=== PATIENT | female | born 1985 ===

== ENCOUNTER 2016-06-25 13:21 | Emergency (ER) | payer OTHER ==
[2016-06-25 14:15] VITALS: BP 139/84; PULSE 94; RESP 18; TEMP 98.4; O2SAT 100
--- NOTE | 2016-06-25 14:35 | ED PDOC ---
HPI: Female Pain Time Seen by Provider: 06/25/16 14:22 Chief Complaint (Nursing): Female Genitourinary Chief Complaint (Provider): Amenorrhea History Per: Patient Additional Complaint(s): Patient is a 30 yo female, no PMH, presents to ED requesting test. LMP was May 17. Pt notes feeling dizziness for 10 days. Nausea, no v/d. NO bleeding or cramping. Past Medical History Reviewed: Nursing Documentation, Vital Signs Vital Signs: Last Vital Signs Temp 98.4 F 06/25/16 14:12 Pulse 94 H 06/25/16 14:12 Resp 18 06/25/16 14:12 BP 139/84 06/25/16 14:12 Pulse Ox 100 06/25/16 14:12 - Medical History PMH: No Chronic Diseases - Surgical History Surgical History: No Surg Hx - Family History Family History: States: No Known Family Hx - Living Arrangements Living Arrangements: With Family - Social History Current smoker - smoking cessation education provided: No Alcohol: None Drugs: Denies - Allergies Allergies/Adverse Reactions: Allergies Allergy/AdvReac Type Severity Reaction Status Date / Time No Known Allergies Allergy Verified 06/25/16 14:11 Review of Systems ROS Statement: Except As Marked, All Systems Reviewed And Found Negative Physical Exam - Reviewed Nursing Documentation Reviewed: Yes Vital Signs Reviewed: Yes - Physical Exam Appears: Positive for: Well, Non-toxic, No Acute Distress Head Exam: Positive for: ATRAUMATIC, NORMAL INSPECTION, NORMOCEPHALIC Skin: Positive for: Normal Color, Warm, DRY Eye Exam: Positive for: EOMI, Normal appearance, PERRL ENT: Positive for: Normal ENT Inspection Neck: Positive for: Normal, Painless ROM Cardiovascular/Chest: Positive for: Regular Rate, Rhythm Respiratory: Positive for: CNT, Normal Breath Sounds Gastrointestinal/Abdominal: Positive for: Normal Exam, Bowel Sounds, Soft Back: Positive for: Normal Inspection Extremity: Positive for: Normal ROM Neurologic/Psych: Positive for: Alert, Oriented - ECG O2 Sat by Pulse Oximetry: 100 Medical Decision Making Medical Decision Making: preg (+) Pt educated on result and demonstrated full understanding. Pt requesting US and indications for such discussed at length Advised to follow up with OB, continue pre-natals and return to ED with any concerns. Disposition - Clinical Impression Clinical Impression: - Patient ED Disposition Is Patient to be Admitted: No - Disposition [facility]] [facility] [Outside] Disposition: Routine/Home Disposition Time: 15:41 Condition: STABLE Instructions: (ED) Print Language: FRISIAN
[2016-06-25] MEDS ORDERED: Povidone Iodine Topical 10% Sol ONE (15:20)
== END 2016-06-25 15:39 | disposition home or self-care (01) ==
LOC: H.ER 13:21
DX: R42 Dizziness and giddiness (principal); Z33.1 Pregnant state, incidental

== ENCOUNTER 2016-10-23 11:30 | Emergency (ER) | payer SELFPAY ==
[2016-10-23 12:54] VITALS: BMI 3439.8
--- NOTE | 2016-10-23 13:02 | OBHP ---
Datetime: 10/23/2016 12:40 IP Adm Impression: , intrauterine ; No Active Labor IP Admit Plan: Discharge home Admit Comment, IP Provider: yo IUP at 22+w from [facility] c/o back pain since yesterday. No SORM. no VB +FM, She did not used meds for pain. No fever/chills. IN NAD comforable/no CVA tenderness; + muscular skeletal pain. PMH: denies PSH: ambika NKA PsoH ambika smoking EOTH druikelly A: IUP at 22w back pain - prb musc skeletal PLAN: dischage home and follow up as schedule [facility] in 1mo Acetamenophen 650mg po q 4h prn pain OCT Translating phone used Kenji Drake [phone] Pelvic Type - PN: Adequate Extremities - PN: Normal Abdomen - PN: Normal Back - PN: Normal Breast - PN: Not Done Lungs - PN: Normal Heart - PN: Normal Thyroid - PN: Normal Neurologic - PN: Normal HEENT - PN: Normal General - PN: Normal FHR - Baseline A Provider: + Membranes, Provider: Intact Comments, ACOG Physical Exam: ROS: General: no weakness; no fatigue HEENT: no HOWARD; no visual dist CV: no palpitations; no no CP GI: no N/V no diarhea No epigastric pain; non radiating : no F/U/D MS: No joint pain Pool Provider: Negative IP Hx Assessment: The History has been Reviewed and is Current Dilatation, Provider: 0 Genitourinary Exam: Normal DTRs - PN: Normal
[2016-10-23 20:47] VITALS: BP 125/81; PULSE 92; RESP 18; TEMP 98.8; O2SAT 100
== END 2016-10-23 13:00 | disposition home or self-care (01) ==
LOC: H.EROB2 11:30 → H.L&D 11:58 → H.EROB2 13:00
DX: O47.03 False labor before 37 completed weeks of gestation, third trimester (principal); Z3A.22 22 weeks gestation of pregnancy

== ENCOUNTER 2017-02-15 03:28 | Inpatient (IN) | payer MEDICAID ==
[2017-02-15] MEDS ORDERED: Phenaphthazine-PH Test Paper VI ONE (04:13)
[2017-02-15 04:14] VITALS: BMI 35.3
[2017-02-15] MEDS ORDERED: Lactated Ringer's 1,000 ML IV SCH ×2 (04:45→11:15)
[2017-02-15 05:23] VITALS: O2SAT 100
[2017-02-15 05:41] LABS: BASO % 0.2 % (0.0-2.0); EOS # 0.1 K/uL (0.0-0.7); EOS % 0.9 % (0.0-4.0); HEMATOCRIT 34.5 % (34.0-47.0); LYMPH # 1.7 K/uL (1.0-4.3); LYMPH % 15.4 % (20.0-40.0); MEAN CELL VOLUME 79.1 fl (81.0-99.0); MEAN CORPUSCULAR HEMOGLOBIN 26.4 pg (27.0-31.0); MEAN CORPUSCULAR HGB CONC 33.4 g/dL (33.0-37.0); MEAN PLATELET VOLUME 9.5 fl (7.2-11.7); MONO # 0.7 K/uL (0.0-0.8); MONO % 6.5 % (0.0-10.0); NEUT # 8.2 K/uL (1.8-7.0); RED CELL DISTRIBUTION WIDTH 14.1 % (11.5-14.5); WHITE BLOOD COUNT 10.7 K/uL (4.8-10.8)
--- NOTE | 2017-02-15 08:10 | OBADHP ---
Datetime: 02/15/2017 04:19 Admit Comment, IP Provider: 31 yo at 39 1/7 weeks GA based on LMP 05/17/16, consistent with first trimester US, EDC 02/21/17 presents with c/o SROM at 2:30 am this morning. Denies VB, or CTX. Report s +FM. Pt is GBS negative. Pt goes to [facility] and chart is reviewed. Denies nausea, vomiting, ab dominal pain, fever, chills, headache, dizziness, chest pain or dyspnea. PNC: [facility], Dr. Richardson PNL: GBS neg, HIV neg, RPR neg, HBsAg neg, rubella equivocal, gc/c neg, pap neg. past obhx: denies Past rn gynecology hx: denies hx STI. Pap negative. Right ovarian cyst. Anterior myoma. Pmhx: Positive depression screen pshx: denies social hx: denies EtOH, smoking cigarettes or recreational drug use. medications: PNV allergies: NKDA Assessment: 31 yo IUP @ 39 1/7 weeks GA has SROM. Plan: Admit to L_D Continuous heart tracing CBC Type and screen Case d/w on-call OB hospitalist Dr. Mercedez Rose, PGY1 Addendum: I saw on exam patient presentation. Patient grossly ruptured on exam. A 1 cm irregular contraction s. Plan to admit for management. Maternal well-being and well-being reassuring at this time. Timothy pascual questions answered. Mercedez Extremities - PN: Normal Abdomen - PN: Normal Back - PN: Normal Lungs - PN: Normal Heart - PN: Normal Neurologic - PN: Normal HEENT - PN: Normal General - PN: Normal FHR - Baseline A Provider: 130s Amniotic Fluid Color, Provider: Clear Membranes, Provider: Ruptured Comments, ACOG Physical Exam: SVE: clear gushing of fluids on speculum indicative of SROM. Pool Provider: Positive IP Hx Assessment: The History has been Reviewed and is Current Vital Signs Provider: Reviewed IP Chief Complaint: Suspected ruptured membranes NICHD Variability Prov Fetus A: Moderate 6-25bpm NICHD Accel Fetus A IP Provider: 15X15 FHR Category Provider Fetus A: Category I DTRs - PN: Normal EGA AdmitDate IP: 39.1 IP Adm Impression: Term, intrauterine IP Admit Plan: Admit to unit; Initiate labor protocol Datetime: 10/23/2016 12:40 Pelvic Type - PN: Adequate Breast - PN: Not Done Thyroid - PN: Normal Dilatation, Provider: 0 Genitourinary Exam: Normal
[2017-02-15] MEDS ORDERED: Oxytocin 30 UNITS in Sodium Chloride 0.9% 500 ML IV ONE ×2 (09:51→19:24)
[2017-02-15] MEDS: Lactated Ringer's 1,000 ML IV SCH ×2 (15:35→16:00)
[2017-02-15] MEDS ORDERED: Fentanyl/Bupivacaine HCl 250 ML EPI ONE (15:41)
[2017-02-15] MEDS ORDERED: Bupivacaine HCl 0.25% PF (10 ml) Inj ONE (15:41)
[2017-02-15] MEDS ORDERED: Oxycodone/Acetaminophen 5/325 mg Tab PO PRN ×2 (22:12)
[2017-02-15] MEDS ORDERED: Benzocaine/Menthol SPRAY TOP PRN (22:12)
[2017-02-16 07:26] LABS: HEMATOCRIT 28.6 % (34.0-47.0); MEAN CELL VOLUME 79.6 fl (81.0-99.0); MEAN CORPUSCULAR HEMOGLOBIN 25.8 pg (27.0-31.0); MEAN CORPUSCULAR HGB CONC 32.4 g/dL (33.0-37.0); RED CELL DISTRIBUTION WIDTH 14.5 % (11.5-14.5); WHITE BLOOD COUNT 12.5 K/uL (4.8-10.8)
[2017-02-16] MEDS ORDERED: Multivitamin With Minerals Tab PO SCH (09:00)
[2017-02-16] MEDS ORDERED: Measles, Mumps, and Rubella 0.5 ML VIAL SC ONE (14:33)
[2017-02-17] MEDS ORDERED: Measles, Mumps, and Rubella 0.5 ML VIAL SC ONE (16:27)
--- NOTE | 2017-02-17 18:54 | OBPPN ---
Datetime: 02/16/2017 19:01 PP Pain Prov: Within normal limits PP Nausea Prov: Denies PP Flatus Prov: Yes PP BM Prov: Yes PP Heart Prov: Normal PP Lungs Prov: Normal PP Abdomen/Uterus Prov: Normal PP Lochia Prov: Normal PP Vulva/Perineum Prov: Normal PP Extremities Prov: Normal PP Impression Prov: Normal progression PP Plan Prov: Continue present management PP Progress Note Prov: 31 y/o F PPD#0 reports feeling well with NO acute complaints. Nurse reported elevated HR 119 at 4 pm today. Lochia is reducing progressively. Pt denies headache, CP, SOB, active bleeding or dizziness. On PNC records, there 2 measurement of HR: on 01/24 it was 98; on 02/07 it was 99. Today (02/16), H/H was 9.3/28.6. Pt is on PO Iron therapy. A/P: 31 y/o F on PPD#0 with tachycardia. - Will continue to observe pt for signs of decompensation, infection or sepsis. Case discussed with Dr Bradley, OB division plant engineer Arabella PGY-1. Agree with The above IP PP Procedures: None Vital Signs Provider PP: Reviewed Datetime: 02/16/2017 08:38 PP Breasts Prov: Normal PP CVA Tenderness Prov: Not Done
--- NOTE | 2017-02-17 18:56 | OBPPN ---
Datetime: 02/16/2017 19:26 PP Progress Note Prov: Nurse alerted me that Pt has history of intrapartum depression. Visited with patient and evaluated for severity. She states that she did have symptoms but mainly due to life stre ssors. She is currently feeling well, happy for her new baby. Denies suicidal ideation, self harm, or harm to others. She denies being treated by medication and is going to therapy on a case by case bas is. Last therapy session was 2 weeks ago. I encouraged her to make an appointment this week after dis charge to be able to benefit from a session. Her concern was not having romulo care. I encouraged he r to apply and to be able to see us for her primary care, ob, psychiatric and pediatrics. She agrees and will apply to follow up with us. Ned Boston MD Family Medicine PGY1 Agree with above.
--- NOTE | 2017-02-17 18:58 | OBDCSUM ---
Datetime: 02/17/2017 09:34 Discharged to, Provider: Home Follow up at, Provider: Dr. Richardson Disch Instr Activity: Normal activity; May be up to bathroom; May be up for meals; May Shower Disch Instr Diet: Regular Discharge Instructions, Provider: Routine instructions given Discharge Diagnosis, Provider: Term Delivered Discharge Time: 02/17/2017 18:30 Follow up in weeks, Provider: 6 weeks Disch Referrals: None Contraception discussed, Prov: Yes Disch Activity Restrictions: Minimize stair-climbing; Nothing in vagina - [place], tampons, douc he Discharge Comment, Provider: DOA: 02/15/17 EGA: 39.1 weeks Diagnosis: uncomplicated with NVD PRisk factors: none summary of : L_D summary: DOL: 02/15/17 at 21:25, NB: male : 9/9 Weight: 3455g PP summary: No serious complications during PP. Lochia= menses, mild pain, controlled with medications. Rubella equivocal blood type: O+ CBC pp: 9.3/28.6 Discharge Date 02/17/17 at 10:00AM Discharge Instructions: -encourage -Ibuprofen for pain PRN -Ambulate -continue PNV 1 tab/day -f/u NB visit and PP visit Morley PGY 1 Agree with above. Contraception after Delivery: Undecided
[2017-02-17 22:41] VITALS: BP 118/70; PULSE 92; RESP 16; TEMP 97.2
== END 2017-02-17 18:30 | disposition home or self-care (01) | DRG 373 ==
LOC: H.EROB2 03:28 → H.L&D 04:45 → H.OB/GYN 02-16 00:30
PROVIDERS: ADMIT Obstetrics & Gynecology; ATTEND Obstetrics & Gynecology
PROC: 10E0XZZ Delivery of Products of Conception, External Approach (ICD-10-PCS; principal; 2017-02-15)
PROC: 4A1HXCZ Monitoring of Products of Conception, Cardiac Rate, External Approach (ICD-10-PCS; 2017-02-15)
DX: O80 Encounter for full-term uncomplicated delivery (principal); Z37.0 Single live birth; Z3A.39 39 weeks gestation of pregnancy

== ENCOUNTER 2017-08-26 17:47 | Emergency (ER) | payer SELFPAY ==
[2017-08-26 17:47] VITALS: BMI 35.3
[2017-08-26 18:17] VITALS: BP 126/76; PULSE 88; RESP 16; TEMP 97.9; O2SAT 100
--- NOTE | 2017-08-26 22:42 | ED PDOC ---
HPI: Abdomen Time Seen by Provider: 08/26/17 22:21 Chief Complaint (Nursing): Abdominal Pain Chief Complaint (Provider): abdominal pain History Per: Patient History/Exam Limitations: no limitations Onset/Duration Of Symptoms: Days (2) Current Symptoms Are (Timing): Still Present Location Of Pain/Discomfort: Suprapubic Quality Of Discomfort: Cramping Additional Complaint(s): 31 y/o female presents for evaluation of intermittent lower abdominal cramping x 2 days. Associated nausea/vomiting. Patient reports her menstrual period is late. Denies fever, cough, congestion, chest pain, shortness of breath, palpitations, changes in bowel movements, urinary symptoms, vaginal bleeding/ discharge. Past Medical History Reviewed: Historical Data, Nursing Documentation, Vital Signs Vital Signs: Last Vital Signs Temp 97.9 F 08/27/17 02:11 Pulse 88 08/27/17 02:11 Resp 16 08/27/17 02:11 BP 126/76 08/27/17 02:11 Pulse Ox 100 08/27/17 04:09 - Medical History PMH: No Chronic Diseases Denies: Depression, Diabetes, HTN - Surgical History Surgical History: No Surg Hx - Family History Family History: States: No Known Family Hx - Living Arrangements Living Arrangements: With Family - Home Medications Home Medications: Ambulatory Orders Medication Instructions Recorded Pnv with Ca,No.72/Iron/FA [Pnv 1 tab PO DAILY 10/23/16 Plus Multivit Tab] Ibuprofen [Motrin Tab] 600 mg PO Q6 PRN #30 tab 02/17/17 - Allergies Allergies/Adverse Reactions: Allergies Allergy/AdvReac Type Severity Reaction Status Date / Time No Known Allergies Allergy Verified 08/26/17 18:14 Review of Systems ROS Statement: Except As Marked, All Systems Reviewed And Found Negative Gastrointestinal: Positive for: Nausea, Vomiting, Abdominal Pain Physical Exam - Reviewed Nursing Documentation Reviewed: Yes Vital Signs Reviewed: Yes - Physical Exam Appears: Positive for: Well, Non-toxic, No Acute Distress Head Exam: Positive for: ATRAUMATIC, NORMAL INSPECTION, NORMOCEPHALIC Skin: Positive for: Normal Color Eye Exam: Positive for: Normal appearance ENT: Positive for: Normal ENT Inspection Cardiovascular/Chest: Positive for: Regular Rate, Rhythm Respiratory: Positive for: Normal Breath Sounds Gastrointestinal/Abdominal: Positive for: Bowel Sounds, Soft, Tenderness ( suprapubic, llq) Back: Positive for: Normal Inspection Extremity: Positive for: Normal ROM Neurologic/Psych: Positive for: Alert, Oriented - Laboratory Results Result Diagrams: 08/26/17 23:50 08/26/17 23:50 - ECG O2 Sat by Pulse Oximetry: 100 - CT Scan/US tv u/s Other Rad Studies (CT/US): Read By Radiologist, Radiology Report Reviewed - Progress ED Course And Treament: labs, urine, u/s EXAM: US , Transvaginal CLINICAL HISTORY: 31 years old, female; Pain; Other: Pelvis pain/llq; Gestational age or lmp: ; ; Additional info: Suprapubic, llq pain TECHNIQUE: Real-time transvaginal obstetrical ultrasound of the maternal pelvis and a first trimester with image documentation. Transvaginal imaging was used for better evaluation of the fetus and adnexa. COMPARISON: No relevant prior studies available. FINDINGS: Gestation: Living intrauterine gestation size/ dates compatible at 5 weeks 5 days. CORBY is 04/23/18 Positive embryonic heart tones at 96 beats prominent Gestational sac is located in the uterine fundus. Normal secondary yolk sac. No significant subchorionic bleed. Placenta/amniotic fluid: See above. Uterus/cervix: Cervix is closed. No myometrial mass. Ovaries: The left maternal ovary measures 3.2 x 2.4 x 3 cm and contains a 2.4 cm corpus luteum cyst.Documented Doppler color and pulse wave flow The maternal right ovary measures 2.8 x 1.8 x 2.1 cm. Antral follicles.Documented Doppler color and pulse wave flow No mass. Free fluid: No free fluid. IMPRESSION: Living intrauterine gestation size and is compatible. Embryonic heartbeat is borderline lobe which is a concerning finding for poor outcome. Recommend short-term followup in 7-10 days No primary or secondary sonographic findings of ovarian torsion. Patient educated on findings, advised follow up [place] in 2-3 days. vitamins Return precautions given Disposition - Clinical Impression Clinical Impression: Ovarian cyst, Abdominal pain in - Patient ED Disposition Is Patient to be Admitted: No Counseled Patient/Family Regarding: Studies Performed, Diagnosis, Need For Followup - Disposition [facility]errals: [facility] [Outside] Disposition: Routine/Home Disposition Time: 01:40 Condition: STABLE Instructions: Ovarian Cysts, Round Ligament Pain Forms: Cap That (German)
[2017-08-27 00:05] LABS: BASO % 0.4 % (0.0-2.0); EOS # 0.1 K/uL (0.0-0.7); EOS % 1.6 % (0.0-4.0); HEMOGLOBIN 12.2 g/dL (12.0-16.0); LYMPH # 2.6 K/uL (1.0-4.3); LYMPH % 33.7 % (20.0-40.0); MEAN CELL VOLUME 76.9 fl (81.0-99.0); MEAN CORPUSCULAR HEMOGLOBIN 25.3 pg (27.0-31.0); MEAN CORPUSCULAR HGB CONC 32.9 g/dL (33.0-37.0); MONO # 0.5 K/uL (0.0-0.8); MONO % 6.3 % (0.0-10.0); NEUT # 4.5 K/uL (1.8-7.0); RBC 4.84 Mil/uL (3.80-5.20); RED CELL DISTRIBUTION WIDTH 15.8 % (11.5-14.5); WHITE BLOOD COUNT 7.7 K/uL (4.8-10.8)
[2017-08-27 00:13] LABS: SQUAMOUS EPITHIAL 6 /hpf (0-5); URINE BACTERIA RARE (<OCC); URINE BILIRUBIN NEGATIVE (NEGATIVE); URINE BLOOD NEGATIVE (NEGATIVE); URINE CLARITY CLOUDY (Clear); URINE COLOR YELLOW (YELLOW); URINE GLUCOSE (UA) NEG (Normal); URINE LEUKOCYTE ESTERASE TRACE Leu/uL (Negative); URINE PROTEIN NEGATIVE (NEGATIVE); URINE UROBILINOGEN 0.2-1.0 mg/dL (0.2-1.0)
[2017-08-27 00:18] LABS: ALB/GLOB RATIO 1.2 (1.0-2.1); ALBUMIN 4.3 g/dL (3.5-5.0); ALT/SGPT 25 U/L (9-52); AST/SGOT 19 U/L (14-36); BLOOD UREA NITROGEN 10 mg/dl (7-17); GFR AFRICAN-AMERICAN > 60; GFR NON-AFRICAN AMERICAN > 60
--- NOTE | 2017-08-27 08:59 | US ---
PROCEDURE: First trimester ultrasound HISTORY: Ports suprapubic and left lower quadrant pain. Beta HCG results: Pending COMPARISON: None available. TECHNIQUE: Standard protocol for this study/examination. FINDINGS: LMP: 07/15/2017 Prior examinations from the current : None TECHNIQUE: Real-time 2D imaging, duplex and color Doppler. FINDINGS: Cardiac activity: Present Rate: 96 BPM Measurements: [place] rump length: 0.25 cm Gestational age based on CRL 5 weeks 6 days Gestational age 5 weeks 4 days based on gestational sac measurement 1.36 cm Gestational age derived from LMP: 6 weeks CORBY based on LMP: 04/21/2018. CORBY based on biometry: 04/23/2018 Gestational concordance documented Yolk sac identified Uterus: Unremarkable. Cervix: No Cervical abnormalities: Negative examination for cervical dilatation or effacement. Closed cervix measuring 4.10 cm Subchorionic hemorrhage: None UTERUS: 5.5 x 6.8 x 9.3 cm. ADNEXA: Right: 1.8 x 2.1 x 2.8 cm. Normal Doppler arterial waveform documented. Multiple subcentimeter follicles. Left: 2.4 x 3.1 x 3.2 cm. Dominant cyst presumed corpus luteum measures 1.9 x 2.1 x 2.4 cm Normal Doppler arterial waveform documented Fluid in the cul-de-sac: None IMPRESSION: Five weeks 5 days live intrauterine gestation. Gestational concordance documented. Concordant results (preliminary interpretation) provided by [employer]. Procedure Completed: 23:21 Preliminary ([employer]Rad) Report: Dictated and Authenticated: 00:27 August 27, 2017. Final Interpretation: 08:56 August 27, 2017.
== END 2017-08-27 01:40 | disposition home or self-care (01) ==
LOC: H.ER 17:47
DX: O26.899 Other specified pregnancy related conditions, unspecified trimester (principal); N83.209 Unspecified ovarian cyst, unspecified side

== ENCOUNTER 2018-04-22 08:11 | Inpatient (IN) | payer MEDICAID, SELFPAY ==
[2018-04-22 08:32] VITALS: BMI 36.8
[2018-04-22] MEDS ORDERED: Oxytocin 30 UNIT 30 UNITS/500 ML BAG IV ONE ×2 (08:34→12:10)
[2018-04-22] MEDS: Lactated Ringer's 2,000 ML IV ONE ×2 (08:35→09:35)
[2018-04-22] MEDS ORDERED: Lactated Ringer's 1,000 ML IV SCH (08:45)
[2018-04-22] MEDS ORDERED: OXYTOCIN/0.9 % NS 20 UNIT/1,000 ML BAG IV SCH (08:45)
[2018-04-22 09:22] LABS: BASO % 0.4 % (0.0-2.0); EOS # 0.1 K/uL (0.0-0.7); EOS % 1.4 % (0.0-4.0); HEMOGLOBIN 12.2 g/dL (12.0-16.0); LYMPH # 1.7 K/uL (1.0-4.3); LYMPH % 20.9 % (20.0-40.0); MEAN CELL VOLUME 78.8 fl (81.0-99.0); MEAN CORPUSCULAR HEMOGLOBIN 25.5 pg (27.0-31.0); MEAN CORPUSCULAR HGB CONC 32.3 g/dL (33.0-37.0); MEAN PLATELET VOLUME 9.6 fl (7.2-11.7); MONO # 0.5 K/uL (0.0-0.8); MONO % 6.4 % (0.0-10.0); NEUT # 5.9 K/uL (1.8-7.0); NEUT % 70.9 % (50.0-75.0); RBC 4.8 Mil/uL (3.80-5.20); RED CELL DISTRIBUTION WIDTH 15.6 % (11.5-14.5); WHITE BLOOD COUNT 8.3 K/uL (4.8-10.8)
[2018-04-22] MEDS ORDERED: Fentanyl/Bupivacaine HCl 250 ML EPI ONE (09:33)
--- NOTE | 2018-04-22 12:07 | OBADHP ---
Datetime: 04/22/2018 11:55 FHR - Baseline A Provider: 120 Amniotic Fluid Color, Provider: Clear Membranes, Provider: Ruptured Contraction Comments Provider: occ NICHD Variability Prov Fetus A: Moderate 6-25bpm NICHD Accel Fetus A IP Provider: 15X15 FHR Category Provider Fetus A: Category I NICHD Decel Fetus A IP Provider: None Dilatation, Provider: 5 Effacement, Provider: 90 Station, Provider: -1 Datetime: 04/22/2018 10:05 Pelvic Type - PN: Adequate Extremities - PN: Normal Abdomen - PN: Normal Back - PN: Normal Breast - PN: Not Done Lungs - PN: Normal Heart - PN: Normal Thyroid - PN: Normal Neurologic - PN: Normal HEENT - PN: Normal General - PN: Normal Vital Signs Provider: Reviewed; Within Normal Limits IP Chief Complaint: Uterine contractions; Maternal discomfort Genitourinary Exam: Normal DTRs - PN: Normal EGA AdmitDate IP: 40.1 IP Admit Plan: Admit to unit; Initiate labor protocol Datetime: 04/22/2018 08:36 Admit Comment, IP Provider: 32 yo with IUP @ 40+1 weeks based on LMP of 07/15/17 presents to O BED for painful CTX. Denies vaginal bleeding, loss of fluid per the vagina. Endorses good move ment. Denies shortness of breath, chest pain,dysuria, diarrhea, fevers or chills. ROS negative except for stated above. OB history: [facility]- Dr. 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 No murmurs Lungs: Clear bilaterally. No Rhonchi, rales or wheezes Abdomen: Soft, Gravid, non-tender to palpation. +BS Extremities: +2 dorsalis pedis pulses bilaterally. No lower extremity swelling bilaterally. SVE: Dr. Garcia- 4cm/ 70%/ 0 station Bedside Ultrasound: Cephalic presentation. Assessment: 32 yo with IUP @ 40+1 weeks based on LMP of 07/15/17 admitted for labor Plan: - Admit to L and D - - CBC , T _ S, HIV and RPR - Soap and isaac enema - SVE: 4cm/ 75%/ 0 - reactive NST - category 1 - Anesthesia consult - Lactated Ringers Discussed with Dr. Jose Echevarria, PGY 1 [facility]. Pt joel nd examined by me. Agree with ntoe. Latent phase of labor withp ainful CTX...pain managmement, labor delivery and disucssed. LEONIE Palomino Provider: Negative IP Hx Assessment: The History has been Reviewed and is Current IP Adm Impression: Term, intrauterine ; Intact Membranes
--- NOTE | 2018-04-22 12:13 | OBPN ---
Datetime: 04/22/2018 11:55 IP Progress Impression: Reassuring heart rate IP Informed Consent Obtain: Vaginal Delivery IP Procedures: Artificial ROM IP Progress Plan: Continue present management; Augmentation; Anticipate Vaginal Delivery Membranes, Provider: Ruptured Amniotic Fluid Color, Provider: Clear Contraction Comments Provider: occ FHR - Baseline A Provider: 120 IP Progress Note Comment: She rec'd epidruam and she feels much better SVE 5cm (in 3h) A; Slow progress due to irregular CTX PLAN: Discussion with pt. AROM clear fluid...start Pitocin augmentaion...her questions answered. LEONIE CAMPOSD Accel Fetus A IP Provider: 15X15 FHR Category Provider Fetus A: Category I NICHD Variability Prov Fetus A: Moderate 6-25bpm Dilatation, Provider: 5 Effacement, Provider: 90 Station, Provider: -1 NICHD Decel Fetus A IP Provider: None Datetime: 04/22/2018 10:05 Vital Signs Provider: Reviewed; Within Normal Limits Datetime: 04/22/2018 08:36 Pool Provider: Negative
[2018-04-22] MEDS ORDERED: Lidocaine 1% Inj (20ml) IJ ONE (13:06)
[2018-04-22] MEDS ORDERED: Oxycodone/Acetaminophen 5/325 mg Tab PO PRN ×2 (13:41→16:50)
[2018-04-22] MEDS ORDERED: Benzocaine/Menthol SPRAY TOP PRN (13:41)
--- NOTE | 2018-04-22 14:18 | OBDS ---
DELIVERY PERSONNEL Delivery Doctor: Julia Garcia DO Resident: Dr. Bell MATERNAL INFORMATION Delivery Anesthesia: Local; Epidural Medications in Delivery: pitocin 30 units Estimated Blood Loss (ml): 200 Placenta Cultured: No Maternal Complications: None Provider Comments: Over intact perineum, prepped and drapped in sterile fashion, fully dilated at 10 cm, a male was vaginally delivered by NVD. One nuchal cord around baby's neck was properly rel ieved, anterior and posterior shoulders delivered and followed by rest of body, infant placed on moth er's chest for [id number] estimulation. Umbilical chord was clamped x2 and cut. Chord blood samples taken. Placenta spontaneously delivered. EBL 200mL. Arabella PGY-2 With PGY2, I attnede this delivery. Agree with note MAHNDO LABOR SUMMARY EDC: 04/21/2018 00:00 No. Babies in Womb: 1 Attempted: No Labor Anesthesia: Epidural LABOR INFORMATION Reason for Induction: Not Applicable Onset of Labor: 04/22/2018 06:00 Complete Dilatation: 04/22/2018 13:00 Oxytocin: N/A Group B Beta Strep: Negative Antibiotics # of Doses: n/a Antibiotics Time of Last Dose: n/a Steroids Given: None Reason Steroids Not Administered: Not Applicable MEMBRANES Membranes Rupture Method: Spontaneous Rupture of Membranes: 04/22/2018 11:55 Length of Rupture (hrs): 1.35 Amniotic Fluid Color: Clear Amniotic Fluid Amount: Small Amniotic Fluid Odor: Normal STAGES OF LABOR Stage 1 hrs: 7 Stage 1 min: 0 Stage 2 hrs: 0 Stage 2 min: 16 Stage 3 hrs: 0 Stage 3 min: 14 Total Time in Labor hrs: 7 Total Time in Labor min: 30 VAGINAL DELIVERY Episiotomy: None Laceration Extension: Second Degree Laceration Type: Perineal Other Laceration: right inner labia Laceration Repair: Yes Laceration Repair Note: 2nd degree perineal laceration and right inner labial laceration were repair ed with .0 Vicryl and 3.0 vicryl RAPIDE suture. 1% Lidocaine used for local anesthesia 3-4cc. Initial Vag Sponge Count: 5 laps with ring Final Vag Sponge Count: 5 laps with ring Initial Vag Sharps Count: 3 sutures, 1 needle Final Vag Sharps Count: 3 sutures, 1 needle Sponge Count Correct: Yes Sharps Count Correct: Yes Count Comment: count correct acknowledged by Dr. Garcia/Dr. Bell BABY A INFORMATION Delivery Date/Time: 04/22/2018 13:16 Method of Delivery: Vaginal Born in Route : No : N/A Forceps: N/A Vacuum Extraction: N/A Shoulder Dystocia : No SHOULDER DYSTOCIA BABY A Delivery Date/Time: 04/22/2018 13:16 PRESENTATION/POSITION BABY A Presentation: Cephalic Cephalic Presentation: Vertex Breech Presentation: N/A PLACENTA INFORMATION BABY A Placenta Delivery Time : 04/22/2018 13:30 Placenta Method of Delivery: Spontaneous Placenta Status: Delivered SCORES BABY A Heart Rate 1 min: >100 bpm Resp Effort 1 min: Good Cry Reflex Irritability 1 min: Cough or Sneeze or Pulls Away Muscle Tone 1 min: Active Motion Color 1 min: Body [place], Extremities Blue Resuscitation Effort 1 min: Tactile Stimulation SCORE 1 MIN: 9 Heart Rate 5 min: >100 bpm Resp Effort 5 min: Good Cry Reflex Irritability 5 min: Cough or Sneeze or Pulls Away Muscle Tone 5 min: Active Motion Color 5 min: Body [place], Extremities Blue Resuscitation Effort 5 min: N/A SCORE 5 MIN: 9 INFANT INFORMATION BABY A Gestational Age at Delivery: 40.0 Gestational Status: Term Infant Outcome : Liveborn Condition : Stable Infant Sex: Male IDENTIFICATION/MEDS BABY A ID Band Number: [id number] ID Band Location: Left Leg; Left Arm Vitamin K Given : Not Given Erythromycin Given: Not Given WEIGHT/LENGTH BABY A Birthweight (gms): 3295 Infant Weight (lb): 7 Infant Weight (oz): 4 CORD INFORMATION BABY A No. Cord Vessels: 3 Nuchal Cord : Around Neck x1, Loose Cord Blood Taken: Yes Suction: Mouth ASSESSMENT BABY A Infant Complications: None Physical Findings at Delivery: Within Normal Limits Respirations: Appears Normal Immigration Consultant/ALS Called : No Care By: ngoc Guillen Transferred To: Remains with Mother
[2018-04-22] MEDS: Benzocaine/Menthol SPRAY TOP PRN (22:24)
[2018-04-23 06:37] LABS: BASO % 0.3 % (0.0-2.0); EOS # 0.1 K/uL (0.0-0.7); EOS % 1.3 % (0.0-4.0); HEMOGLOBIN 10.2 g/dL (12.0-16.0); LYMPH # 2.2 K/uL (1.0-4.3); LYMPH % 22.7 % (20.0-40.0); MEAN CORPUSCULAR HEMOGLOBIN 26.2 pg (27.0-31.0); MEAN CORPUSCULAR HGB CONC 33.6 g/dL (33.0-37.0); MEAN PLATELET VOLUME 9.5 fl (7.2-11.7); MONO # 0.6 K/uL (0.0-0.8); MONO % 5.9 % (0.0-10.0); NEUT # 6.7 K/uL (1.8-7.0); NEUT % 69.8 % (50.0-75.0); RBC 3.9 Mil/uL (3.80-5.20); RED CELL DISTRIBUTION WIDTH 15.5 % (11.5-14.5); WHITE BLOOD COUNT 9.5 K/uL (4.8-10.8)
[2018-04-23] MEDS: Benzocaine/Menthol SPRAY TOP PRN (09:56)
--- NOTE | 2018-04-23 11:30 | OBPPN ---
Datetime: 04/23/2018 06:06 PP Pain Prov: Within normal limits PP Nausea Prov: Denies PP Flatus Prov: Yes PP BM Prov: No PP Breasts Prov: Not Done PP Heart Prov: Normal PP Lungs Prov: Normal PP Abdomen/Uterus Prov: Normal PP Lochia Prov: Normal PP Vulva/Perineum Prov: Not Done PP CVA Tenderness Prov: Not Done PP Extremities Prov: Normal PP C/S Incision Prov: Not Applicable PP Progress Prov: Normal PP Impression Prov: Normal progression PP Plan Prov: Continue present management PP Progress Note Prov: 32 y/o F now had a vaginal delivery on 04/23/18 and repair of 2nd degree perineal laceration and R inner labial laceration. Pt reports feeling well, mild cramping pain on lo wer abdomen, pelvic pain is minimal and controlled with medications. Pt has been able to ambulate, pa ssing gasses but NO BM yet. Pt is and supplementing formula since baby has hyperbilirub inemia and needs more hydration. Pt afebrile and tolerating PO. Lochia progressively decreasing and l ess than menses. Pt denies nausea, vomiting, chills, rash, calf tenderness or peripheral edema. O: -H/H: aCBC: 12.2/37.8 pCBC: 10.2/30.4 -Vital signs: stable -PHYSICAL EXAM: ---GEN: Pt NAD, alert, awake, resting peacefully. ---HEENT: NC/AT, EOMI. ---NECK: normal ROM. ---CV: S1 and S2 present, RRR ---LUNGS: CTAB ---ABD: Soft, BS+, appropriate tenderness to palpation. Uterus is firm, at the level of the umbil icus. ---EXT: No edema, No calves tenderness. ---NEURO/PSYCH: AAOx3, no grossly focal deficits, preserved affect and mood. A/P: 32 y/o F now , PPD #1, recovering well. --Continue post- management -- and ambulation encouraged --Anticipating d/c on 04/24 [place] PGY2. Patient seen and examined by me this am. Agree with above resident note. --Dr. hTorne IP PP Procedures: None Vital Signs Provider PP: Reviewed; Within Normal Limits
[2018-04-24] MEDS ORDERED: Measles, Mumps, and Rubella 0.5 ML VIAL SC ONE (10:00)
--- NOTE | 2018-04-24 15:26 | OBDCSUM ---
Datetime: 04/24/2018 05:53 Discharged to, Provider: Home Follow up at, Provider: [facility] - Dr Bell Disch Instr Activity: Normal activity Disch Instr Diet: Regular Discharge Instructions, Provider: Routine instructions given Discharge Diagnosis, Provider: Term Delivered Discharge Time: 04/24/2018 14:45 Follow up in weeks, Provider: 6 weeks Disch Referrals: None Contraception discussed, Prov: Yes Disch Activity Restrictions: No exercising; No sexual activity; Nothing in vagina - [place] Discharge Comment, Provider: 32 yo s/p of baby boy on 04/22/18 at 40+1 weeks EGA. Harvest: Male, Wt. 3295 gm, 9/9 Post- D/C Summary: No OB complications. No complications during post- period. Lochia i s less than menses. Pt able to pass flatus, voiding well and able to ambulate without difficulty. Adm its to one BM. Tolerating regular diet w/o N/V. Fundus firm below umbilicus level. Pt is hemodynamica lly stable (EBL 200cc, 2nd degree tear). H/H: aCBC: 12.2/37.8; pCBC: 10.2/30.4 Discharge Instructions given to patient: Encourage PNV 1 tab po q/day Ibuprofen 600 mg 1 tab po prn q4-6 if moderate pain #30. NO REFILL. Ambulatory with caution, nothing per vagina/sex for 4 weeks, no heavy lifting, avoid stairs, if ex cessive bleeding or fever without relief from Tylenol go to ED Follow-up [facility] Dr. Bell 6 weeks post- Case discussed with Dr Kota Maria PGY1 Attending addendum: I saw and examined the patient at bedside myself this morning. I reviewed the resident note above and agree with findings and management. DC home today. Sue Boss MD Contraception after Delivery: IUD; Undecided
--- NOTE | 2018-04-24 15:26 | OBPPN ---
Datetime: 04/24/2018 05:52 PP Pain Prov: Within normal limits PP Nausea Prov: Denies PP Flatus Prov: Yes PP BM Prov: No PP Breasts Prov: Normal PP Heart Prov: Normal PP Lungs Prov: Normal PP Abdomen/Uterus Prov: Normal PP Lochia Prov: Normal PP Vulva/Perineum Prov: Not Done PP CVA Tenderness Prov: Not Done PP Extremities Prov: Normal PP C/S Incision Prov: Not Applicable PP Progress Prov: Normal PP Impression Prov: Normal progression PP Plan Prov: Continue present management; Discharge PP Progress Note Prov: S: 32 yo s/p on 04/22/18, PPD2. Pt was seen and examined at bedsid e this AM. No overnight events. Pain is minimal. Ambulating and tolerating PO diet without difficulty . Breast and bottle feeding. Lochia < menses. -Flatus/-BM. Denies dizziness, orthostatic changes, ch casi in vision, palpitations, chest pain, fever, chills, diarrhea, nausea and vomiting. O: VS: Stable overnight GEN: NAD Cardio: S1S2, no murmurs Lungs: clear breath sounds b/l, no wheezing Abdomen: BS+, appropriate tenderness to palpation. Uterus is firm and at the level of the umbilic us. EXT: No edema, calves non-tender NEURO/PSYCH: AAOx3, no grossly focal deficits, preserved affect and mood. H/H: aCBC: 12.2/37.8 pCBC: 10.2/30.4 Assessment/Plan: 32 yo s/p on 04/22/18, PPD2. Pt remains afebrile, tolerating pain. -Regular diet -Anticipating d/c on 04/24 -Continue with current management -Encourage and ambulating -Ibuprofen 600mg q6 for pain Case discussed with Dr Kota Bell, PGY2 Attending addendum: I saw and examined the patient at bedside myself this morning. I reviewed the resident note above and agree with findings and management. DC home today. Sue Boss MD IP PP Procedures: None Vital Signs Provider PP: Reviewed; Within Normal Limits
[2018-04-24 19:00] VITALS: BP 114/71; PULSE 97; RESP 20; TEMP 98.7; O2SAT 100
== END 2018-04-24 14:45 | disposition home or self-care (01) | DRG 560 ==
LOC: H.EROB2 08:11 → H.L&D 08:28 → H.EROB2 08:31 → H.L&D 08:32 → H.OB/GYN 16:02
PROVIDERS: ADMIT Obstetrics & Gynecology; ATTEND Obstetrics & Gynecology
PROC: 0KQM0ZZ Repair Perineum Muscle, Open Approach (ICD-10-PCS; principal; 2018-04-22)
PROC: 10E0XZZ Delivery of Products of Conception, External Approach (ICD-10-PCS; 2018-04-22)
PROC: 4A1HXCZ Monitoring of Products of Conception, Cardiac Rate, External Approach (ICD-10-PCS; 2018-04-22)
DX: O69.81X0 Labor and delivery complicated by cord around neck, without compression, not applicable or unspecified (principal); O70.1 Second degree perineal laceration during delivery; Z37.0 Single live birth; Z3A.40 40 weeks gestation of pregnancy